=== PATIENT | male | born 1975 ===

== ENCOUNTER 2017-01-19 18:00 | Emergency (ER) | payer BC, OTHER ==
--- NOTE | 2017-01-19 18:17 | UC ---
Upper Extremity HPI - History of Current Complaint Chief Complaint: UCUpperExtremity Stated Complaint: SHOULDER INJURY Time Seen by Provider: 01/19/17 18:01 Hx Obtained From: Patient Onset/Duration: Sudden Onset - was struck in R upper extremity by another [employer] during game 1 h ago Severity Initially: Moderate Severity Currently: Moderate Character: Sharp, Throbbing Aggravating Factor(s): Movement Alleviating Factor(s): Ice, Rest Associated Signs And Symptoms: Positive: Swelling - Allergies/Home Medications Allergies/Adverse Reactions: Allergies Allergy/AdvReac Type Severity Reaction Status Date / Time Penicillins Allergy See Comment Verified 01/19/17 18:07 unknown antibiotic, not Allergy Rash And Uncoded 01/19/17 18:07 azithromyci Itching Home Medications: Home Medications NK [No Home Medications Reported] 01/19/17 [History Confirmed 01/19/17] PMH/Surg Hx/FS Hx/Imm Hx Previously Healthy: Yes - Surgical History Surgical History: None - Family History Known Family History: Positive: None - Social History Occupation: Employed Full-time Lives: With Family Alcohol Use: Occasionally Substance Use Type: None Smoking Status (MU): Never Smoked Tobacco Review of Systems Constitutional: Negative Respiratory: Negative Cardiovascular: Negative Musculoskeletal: Decreased ROM - R UE Neurological: Negative Psychological: Negative All Other Systems Reviewed And Are Negative: Yes Physical Exam Triage Information Reviewed: Yes Appearance: Well-Appearing, No Pain Distress, Well-Nourished Vital Signs: Initial Vital Signs Temp 99.0 F 01/19/17 18:04 Pulse 84 01/19/17 18:04 Resp 12 01/19/17 18:04 BP 140/95 01/19/17 18:04 Pulse Ox 100 01/19/17 18:04 Vital Signs Reviewed: Yes Respiratory Exam: Normal Cardiovascular Exam: Normal Musculoskeletal: Positive: Other: - limited ROM RUE d/t pain. swelling and pain AC joint, no clavicular pain Skin Exam: Normal Upper Extremity Course/Dx - Differential Dx/Diagnosis Differential Diagnosis/HQI/PQRI: Fracture (Closed), Strain Provider Diagnoses: Right AC separation Discharge - Discharge Plan Condition: Good Disposition: HOME Patient Education Materials: Acromioclavicular Separation (ED) Referrals: Kev Orantes MD [Primary Care Provider] - Andrea Marie MD [Medical Doctor] - 2 Days (for follow-up) Additional Instructions: apply ice to shoulder use ibuprofen 600mg every 6 hours as needed for pain use sling until you see the bone doctor
--- NOTE | 2017-01-19 18:44 | RAD ---
INDICATION: Acromioclavicular joint injury. TECHNIQUE: Multiple views of the acromioclavicular joints were obtained without and with weights. FINDINGS: No fracture is seen. There is mild widening of the right acromioclavicular joint relative to the left side. There is also increased space between the coracoid process and the clavicle suggestive of injury to the coracoclavicular ligaments. IMPRESSION: RIGHT AC SEPARATION. THERE IS ALSO WIDENING OF THE CORACOCLAVICULAR INTERVAL SUGGESTIVE OF INJURY TO THE CORACOCLAVICULAR LIGAMENTS.
== END 2017-01-19 19:00 | disposition home or self-care (01) ==
LOC: UCEAST 18:00
DX: S43.101A Unspecified dislocation of right acromioclavicular joint, initial encounter (principal); W50.0XXA Accidental hit or strike by another person, initial encounter; Y93.63 Activity, rugby
CPT/HCPCS: 73050; 99212; G0463